=== PATIENT | female | born 1995 | race Caucasian/White ===

== ENCOUNTER 2019-05-29 14:47 | Emergency (ER) | payer OTHER ==
[~2019-05-29] VITALS: Ht 154.9 cm; Wt 68.0 kg
== END 2019-05-29 15:32 | disposition home or self-care (01) ==
LOC: ED 14:47
DX: Z32.01 Encounter for pregnancy test, result positive (principal); F17.200 Nicotine dependence, unspecified, uncomplicated; F11.10 Opioid abuse, uncomplicated